=== PATIENT | female | born 1960 | race Caucasian/White ===

== ENCOUNTER 2018-06-23 11:38 | Emergency (ER) | payer OTHER ==
[~2018-06-23] VITALS: Ht 154.9 cm; Wt 72.6 kg
== END 2018-06-23 16:48 | disposition home or self-care (01) ==
LOC: ER 11:38
DX: S40.011A Contusion of right shoulder, initial encounter (principal); M75.81 Other shoulder lesions, right shoulder; W18.39XA Other fall on same level, initial encounter; Y93.89 Activity, other specified; Y92.89 Other specified places as the place of occurrence of the external cause; Y99.8 Other external cause status